=== PATIENT | female | born 1990 | race Caucasian/White ===

== ENCOUNTER 2017-04-30 13:36 | Emergency (ER) | payer BC ==
[~2017-04-30] VITALS: Ht 172.7 cm; Wt 61.2 kg
[2017-04-30 13:36] VITALS: BP 109/71
== END 2017-04-30 16:35 | disposition home or self-care (01) ==
LOC: ER 13:38
DX: S39.011A Strain of muscle, fascia and tendon of abdomen, initial encounter (principal); Z88.1 Allergy status to other antibiotic agents; Z90.89 Acquired absence of other organs; X58.XXXA Exposure to other specified factors, initial encounter; Y93.41 Activity, dancing; Y92.89 Other specified places as the place of occurrence of the external cause; Y99.8 Other external cause status
CPT/HCPCS: 93971; 99284; A4606; Z7610